=== PATIENT | male | born 1970 ===

== ENCOUNTER 2017-08-19 10:18 | Outpatient (CLI) | payer OTHER ==
[~2017-08-19 10:18] MED LIST: COZAAR50 MG PO; OMEPRAZOLE20 MG PO; PERCOCET 5-3251 EACH PO; RECTICARE30 GM TOP
== END 2017-08-19 10:27 | disposition home or self-care (01) ==
LOC: RAD 10:18
DX: K61.2 Anorectal abscess (principal); K60.5 Anorectal fistula

== ENCOUNTER 2017-08-23 05:40 | Day surgery (SDC) | payer OTHER ==
[2017-08-23] MEDS ORDERED: RECTICARE30 GM TOP (09:12)
[2017-08-23] MEDS ORDERED: PERCOCET 5-3251 EACH PO (09:12)
== END 2017-08-23 13:40 | disposition home or self-care (01) ==
LOC: CIR.AMB 05:40
DX: K61.2 Anorectal abscess (principal); K60.5 Anorectal fistula

== ENCOUNTER 2018-06-27 13:14 | Outpatient (CLI) | payer OTHER | END 2018-06-27 13:23 | disposition home or self-care (01) | LOC: RAD 13:14 | DX: R10.2 Pelvic and perineal pain (principal) ==

== ENCOUNTER → 2018-07-30 | Emergency (ER) | payer OTHER ==
[~2018-07-30] VITALS: Ht 152.4 cm; Wt 90.7 kg
== END | disposition expired ==
LOC: ER 21:05 → CPU-OBS 21:22
DX: I21.19 ST elevation (STEMI) myocardial infarction involving other coronary artery of inferior wall (principal); I16.0 Hypertensive urgency; I10 Essential (primary) hypertension
CPT/HCPCS: G0378; G0379; 92950; 93005